=== PATIENT | female | born 1965 | race Caucasian/White ===

== ENCOUNTER 2018-11-13 08:55 | Day surgery (SDC) | payer BC, OTHER ==
[2018-11-12 09:28] LABS: HEMATOCRIT 42.9 % (36.0-48.0); HEMOGLOBIN 14.8 g/dL (12-16); MCH 29.1 pg (26.0-34.0); MCHC 34.5 g/dL (31.0-37.0); MCV 84.3 fL (80.0-100.0); MEAN PLATELET VOLUME 10.5 fL (7.4-10.4); RBC 5.09 10x6/uL (4.00-5.40); RDW 13.2 % (11.5-14.5); WBC 7.7 10x3/uL (4.8-10.8)
[~2018-11-13] VITALS: Ht 162.6 cm; Wt 93.0 kg
[~2018-11-13 08:55] MED LIST: CELEXA40 MG PO; SINGULAIR10 MG PO; XANAX0.5 MG PO
[2018-11-13 09:24] VITALS: BP 158/98; Ht 162.6 cm; Wt 93.0 kg
--- NOTE | 2018-11-13 16:48 | NUR ---
1635 ASSISSTED UP TO BR VOIDS QS. AMALIA PAD PROVIDED SPOUSE AT SIDE.
--- NOTE | 2018-11-14 08:37 | OP ---
PATIENT NAME: NYASIA STEIN MEDICAL RECORD: [id number] :69 LOCATION:D.OPS ADMISSION DATE: SURGEON: MARTHA PANDYA MD DATE OF OPERATION: 11/13/2018 SURGEON: Martha Pandya MD ANESTHESIA: General anesthesia by Jesus Diane CRNA DIAGNOSES: Female stress urinary incontinence. Midline cystocele, [place]-Walker grade II. PROCEDURES: Cystoscopy, pubovaginal sling with mesh - [employer] Obtryx II, cystocele repair with cadaveric dermis - Coloplast Ashok 8- x 12-cm sheet. FINDINGS: On cystoscopy, no bladder tumors and no bladder injury. Single ureteral orifices bilaterally. BLOOD LOSS: 200 mL. CLINICAL HISTORY: This is a 52-year-old female, A0, who had a hysterectomy in 2011 for a fibroid uterus. She has stress urinary incontinence and a grade II midline cystocele. I discussed surgical repair with her over a year ago, but at that time, she had to take care of an elderly mother who had medical issues. She now wishes to have this repaired. She is not allergic to any medications. She was given Ancef on-call to the OR. DESCRIPTION OF PROCEDURE: The patient was given induction of general anesthesia in supine position. She was then placed into lithotomy position. She was prepped and draped. A Thakur catheter was inserted into the bladder and put to bag drainage. A weighted speculum was placed to hold the posterior vaginal wall down. The labia majora were retracted laterally with stay sutures of #2 nylon. These went to the labia majora and were anchored to the medial thighs. We then infiltrated the anterior vaginal wall with Pitressin solution. Twenty units of Pitressin was dissolved in 100 mL of injectable normal saline. A transverse incision was then made at the level of the bladder neck. Dissection was then performed using Metzenbaum scissors. We went through the pubocervical fascia on each side. We dissected the space of Retzius and the obturator membrane on each side. Down in the pelvis, we dissected the presacral space containing the ischial spine and the sacrospinous ligament. Then, 4 suspensory sutures of 2-0 Prolene were placed using the Brevado suture entry driver operator. The 2 posterior suspensory sutures went through the sacrospinous ligaments about 1 cm medial to the ischial spine. The purpose of going medial to the ischial spine is to avoid hitting the internal pudendal artery and the pudendal nerves. Once these were placed, the 2 anterior sutures were placed. These were placed on Umesh's ligament. The distance between the ischial spines was measured and this came out to be 12 cm. The distance from the apex of our dissection at the level of the vaginal cuff to the bladder neck was measured at 6 cm. The 8- x 12-cm sheet of cadaveric fascia was marked out so that the midpoint would be 6 cm. An arch was cut out so that the graft arms were 8 cm in length but the midpoint of the graft was only 6 cm in width. The 4 sutures were placed to their respective corners and the cystocele repair graft was tied down. We then landmarked for the pubovaginal sling. The landmark was inferior to the insertion of the adductor longus muscle onto the descending pubic ramus. A stab OPERATIVE REPORT [id number] NYASIA STEIN incision was made here on each side. The [employer] Obtryx helical trocars were used to go deep to the descending pubic ramus and into the vaginal dissection space. This was done on each side. The ends of the graft arms were then attached to the tips of the needles and the needles were withdrawn, resulting in transobturator passage of the graft arms. At this point, the Thakur catheter was removed and we performed cystoscopy. No bladder injury was noted. The bladder was filled to capacity with normal saline through the cystoscope. Upon removing the cystoscope, manual suprapubic pressure could elicit leakage per the urethra. The graft was located under the mid urethra and then the tab which identified the midpoint of the graft was removed. Gradually, the graft tension was increased until it would take a fair amount of suprapubic pressure before leakage could be elicited. I did not wish to completely occlude the urethra to prevent lack of leakage. Under any circumstances, I did not wish for her to be in urinary retention. At this point, the sutures holding the clear plastic sheath material to the graft arms was cut on each side and the sheath material was removed entirely. The graft arms were cut where they exited the inguinal skin. The groin incisions were closed using simple interrupted 3-0 Vicryl. The vaginal wound was irrigated out using normal saline. A running 3-0 Monocryl was used to close the transverse vaginal incision. Vaginal packing consisting of Kerlix infiltrated with Silvadene was placed. The catheter was put in and out to drain the bladder. She will have a voiding trial today. If she cannot void, then she will go home with a Thakur catheter to bag drainage. The vaginal packing will be removed today prior to her going home. I will see her in followup in 1-2 weeks' time. TRANSINT:[id number] Voice Confirmation ID: [id number] DOCUMENT ID: [id number] MARTHA PANDYA MD at 0837 CC: [id number] DICTATION DATE: 11/13/18 1514 PREASSEMBLER AND INSPECTOR: 11/13/181920 [facility] 11/13/18 [facility] [address] [place] [address]
== END 2018-11-13 19:30 | disposition home or self-care (01) ==
LOC: D.OPS 08:55
PROVIDERS: Anesthesiology; ATTEND Urology
DX: N39.3 Stress incontinence (female) (male) (principal); N81.11 Cystocele, midline; Z01.812 Encounter for preprocedural laboratory examination

== ENCOUNTER 2019-04-16 05:57 | Day surgery (SDC) | payer BC, OTHER ==
[~2019-04-16] VITALS: Ht 162.6 cm; Wt 92.7 kg
[2019-04-16 06:14] LABS: HEMATOCRIT 44.9 % (36.0-48.0); HEMOGLOBIN 14.9 g/dL (12-16); MCH 28.4 pg (26.0-34.0); MCHC 33.2 g/dL (31.0-37.0); MCV 85.7 fL (80.0-100.0); MEAN PLATELET VOLUME 10.4 fL (7.4-10.4); RBC 5.24 10x6/uL (4.00-5.40); WBC 8.4 10x3/uL (4.8-10.8)
[2019-04-16 06:38] VITALS: BP 134/90; Ht 162.6 cm; Wt 92.7 kg
--- NOTE | 2019-04-16 06:55 | NUR ---
SURGERY CALLED AT THIS TIME TO INFORM OF OUTDATED H&P.
--- NOTE | 2019-04-16 08:55 | OP ---
PATIENT NAME: NYASIA STEIN MEDICAL RECORD: [id number] :69 LOCATION:D.OPS ADMISSION DATE: SURGEON: MARTHA PANDYA MD DATE OF OPERATION: 04/16/2019 SURGEON: Martha Pandya MD ANESTHESIA: TIVA by Sivan Severino CRNA. DIAGNOSIS: Female stress urinary incontinence. PROCEDURE: Cystoscopy and Durasphere periurethral injection times 1 unit. FINDINGS: Open bladder neck and urethra, inflamed bladder with no bladder tumors. Single ureteral orifices bilaterally. BLOOD LOSS: None. CLINICAL HISTORY: This is a 53-year-old female with a history of stress urinary incontinence and a cystocele. She had a cystocele and pubovaginal sling. Afterwards, she had bronchitis with severe coughing and she loosened up her sling. She has persistent stress urinary incontinence. She comes today to have periurethral bulking agents injected. She was given Ancef collections officer to the OR. DESCRIPTION OF PROCEDURE: The patient was given IV sedation. She required a large quantity of sedation and yet she was continuing to be restless throughout. She also has an obstructive airway and nasal trumpet had to be placed by the anesthesiologist. Eventually, we got her relatively settled. She was placed in stirrups and prepped and draped. A 20-Greenlandic cystoscope with Gulshan injection needle was used. I got the needle into the submucosa of the left side of the urethra. I started injecting the Durasphere. At this point, the patient reacted by kicking in the stirrups. This halted the injection process. The problem with the Durasphere is that once the injection is halted it tends to solidify into concrete. It did so in this syringe and the syringe was basically wasted afterwards. There were no other units available. I will probably have to repeat this process in the future with further units being available. The bladder was emptied through the cystoscope sheath, and she was brought to the recovery room. TRANSINT:[id number] Voice Confirmation ID: [id number] DOCUMENT ID: [id number] MARTHA PANDYA MD at 0855 CC: [id number] DICTATION DATE: 04/16/19815 WAREHOUSE PICKER: 04/16/19825 [id number] [place] [address]
--- NOTE | 2019-04-16 09:09 | NUR ---
DC INSTRUCTIONS GIVEN TO PT. STATES UNDERSTANDING. DC'D IV CATH FULLY INTACT. PT LEFT UNIT VIA AT 0906
== END 2019-04-16 09:06 | disposition home or self-care (01) ==
LOC: D.OPS 05:57 → D.PAN 07:30 → D.OPS 09:06
PROVIDERS: Anesthesiology; ATTEND Urology
DX: N39.3 Stress incontinence (female) (male) (principal); E07.9 Disorder of thyroid, unspecified

== ENCOUNTER 2019-10-23 05:28 | Day surgery (SDC) | payer BC, OTHER ==
[~2019-10-23] VITALS: Ht 162.6 cm; Wt 85.7 kg
--- NOTE | ~2019-10-23 | OP ---
PATIENT NAME: NYASIA STEIN MEDICAL RECORD: [id number] :69 LOCATION:D.OPS ADMISSION DATE: SURGEON: ANTHONY MAYER DPM DATE OF OPERATION: 10/23/2019 PREOPERATIVE DIAGNOSES: 1. Left calcaneal spur. 2. Achilles tendon disruption. POSTOPERATIVE DIAGNOSES: 1. Left calcaneal spur. 2. Achilles tendon disruption. PROCEDURES 1. Gastroc recession, left leg. 2. Calcaneal spur removal, left foot. 3. Achilles tendon repair, left foot. ANESTHESIA: Preoperative popliteal block per the anesthesia department as well as intraoperative infiltration of Marcaine plain 20 cc total around the surgical site, as well as a general anesthesia. HEMOSTASIS: Left thigh tourniquet at 350 mmHg. PREOPERATIVE DETAILS: The patient was taken to the OR and placed on the operating table in a supine position. This was followed by induction of general anesthesia, the patient was then placed on the operating table in a prone position. The left extremity was then prepped and draped in the usual aseptic technique followed by exsanguination and inflation of tourniquet. Infiltration of local anesthetic was performed. PROCEDURE #1: Left gastroc recession. A 15-blade was used to create a 3 cm linear incision over the posterior aspect of the gastroc aponeurosis. The incision was deepened down through subcutaneous tissue to the aponeurosis. A paratenon was made. The paratenon was freed from the aponeurosis with the foot in dorsiflexion, a V-cut was made through the aponeurosis allowing adequate dorsiflexion of the ankle joint. The wound was flushed and the skin was closed with skin migdalia. PROCEDURE #2: Calcaneal spur resection, left foot: A 15-blade was used to create a 5 cm linear incision over the posterior aspect of the left heel. The incision was deepened down through subcutaneous tissue to the Achilles tendon. There was noted to be significant enlargement of the posterior heel. The Achilles tendon was released from the back of the calcaneus. At this time, a sagittal saw was used to resect the enlarged calcaneal spurring. A bone rasp was used to smooth it. Following adequate reduction of the spurring we went to procedure #3. PROCEDURE #3: Achilles tendon repair, left foot. Utilizing the suture bridge technique and 4 bone anchors with FiberWire, the Achilles tendon was repaired back to the calcaneus with excellent fixation. After the repair, the ankle was put into a dorsiflexion and noted excellent repair of the Achilles tendon with excellent strength. The wound was flushed. The paratenon was reapproximated with 2-0 Vicryl. The subcutaneous tissue was reapproximated with 4-0 Rapide and the skin was closed with 4-0 Rapide in a subcuticular technique followed by OPERATIVE REPORT [id number] NYASIA STEIN Dermabkel. Adaptic, 4 x 4 and Conform were used to dress the wound followed by application of modified Simmons compression dressing. Tourniquet was deflated. POSTOPERATIVE DETAILS: The patient tolerated the procedures well and left the OR with vital signs stable and vascular status at preoperative levels. The patient was transported to recovery per anesthesia in stable condition. TRANSINT:[id number] Voice Confirmation ID: [id number] DOCUMENT ID: [id number] ANTHONY MAYER DPM CC: [id number] DICTATION DATE: 10/23/19818 DRAFTER AUTOMOTIVE DESIGN: 10/23/1952 [facility] [address] [id number]
[2019-10-23 05:43] LABS: HEMATOCRIT 42.7 % (36.0-48.0); MCH 27.9 pg (26.0-34.0); MCHC 32.8 g/dL (31.0-37.0); MCV 85.2 fL (80.0-100.0); MEAN PLATELET VOLUME 10.1 fL (7.4-10.4); RBC 5.01 10x6/uL (4.00-5.40); RDW 12.6 % (11.5-14.5); WBC 6.5 10x3/uL (4.8-10.8)
[2019-10-23 06:06] LABS: HCG SERUM NEGATIVE (NEGATIVE)
[2019-10-23 06:21] VITALS: BP 147/95; Ht 162.6 cm; Wt 85.7 kg
== END 2019-10-23 09:55 | disposition home or self-care (01) ==
LOC: D.OPS 05:28 → D.PAN 07:00 → D.OPS 08:00
PROVIDERS: Anesthesiology; ATTEND Podiatrist
DX: M77.32 Calcaneal spur, left foot (principal); S86.012A Strain of left Achilles tendon, initial encounter; X58.XXXA Exposure to other specified factors, initial encounter